=== PATIENT | female | born 2000 | race Caucasian/White ===

== ENCOUNTER 2024-09-10 23:45 | Emergency (ER) | payer BC, SELFPAY ==
[2024-09-10 23:55] VITALS: BP 133/86; PULSE 115; RESP 20; TEMP 36.8; O2SAT 99; BMI 25.2
[2024-09-11 00:33] LABS: Appearance Urine Clear (Clear); Bilirubin Urine Negative (Negative); Blood Urine Trace-lysed (Negative); Color Urine Yellow (Yellow); Glucose Urine Negative (Negative); Ketones Urine 2+ (Negative); Leukocyte Esterase Urine Negative (Negative); Nitrite Urine Negative (Negative); Protein Urine Trace (Negative); Specific Gravity Urine 1.015 (1.000-1.030); Urobilinogen Urine 0.2 (0.2-1.0); WBC Urine 0-2 (0-5)
--- NOTE | 2024-09-11 00:33 | CRLHL7_ITS ---
For Patients: As a result of the Century Cures Act, medical imaging exams and procedure reports are released immediately into your electronic medical record. You may view this report before your referring provider. If you have questions, please contact your health care provider. INDICATION: Right lower quadrant pain. TECHNIQUE: CT abdomen and pelvis without contrast. COMPARISON: 12/23/2023. FINDINGS: Lower chest: Unremarkable. Liver: Normal in size and attenuation. No suspicious masses. Gallbladder and bile ducts: No stones or inflammation. No biliary dilatation. Pancreas: Unremarkable. No mass or inflammation. Spleen: Normal in size. No masses. Adrenal glands: Normal in size. No nodules. Kidneys: Normal in size. No suspicious masses, stones, or hydronephrosis. GI tract: Normal in caliber. No sign of mass or inflammation. A structure favored to represent the appendix appears to arise from the cecum and run alongside the bladder and uterus (, ) without definite associated inflammatory changes. Vasculature: Abdominal aorta is normal in caliber. Lymph nodes: No lymphadenopathy. Peritoneum/Abdominal Wall: Unremarkable. No sign of mass or infiltration. No free air or significant free fluid. Pelvis: Bladder is unremarkable. Intrauterine IUD. Bones: Unremarkable for age. IMPRESSION: No acute findings. Specifically, no definite evidence of acute appendicitis. Please note that all CT scans at this facility use dose modulation, iterative reconstruction, and/or weight-based dosing when appropriate to reduce radiation dose to as low as reasonably achievable. Dictated by Misael Whiteside MD @ 09/11/2024 1:32:56 AM (Electronically Signed)
[2024-09-11 01:06] LABS: Ur HCG Qualitative* Negative (Negative)
[2024-09-11 01:08] LABS: Basophils Absolute Auto 0.03 K/uL (0.00-0.30); Basophils Percent Auto 0.4 % (0.0-3.0); Eosinophils Absolute Auto 0.09 K/uL (0.00-0.50); Eosinophils Percent Auto 1.3 % (0.0-7.0); Hematocrit 39.6 % (33.0-51.0); Hemoglobin* 13.5 gm/dL (12.0-16.0); Immature Granulocytes Abs Auto 0.02 K/uL (0.00-0.30); Immature Granulocytes Pct Auto 0.3 %; Lymphocytes Absolute Auto 1.86 K/uL (0.90-2.90); Lymphocytes Percent Auto 26.2 % (20-44); Mean Corpuscular HGB Conc 34 gm/dL (32-36); Mean Corpuscular Hemoglobin 30 pg (26-34); Mean Corpuscular Volume 89 fL (80-100); Monocytes Percent Auto 10.1 % (0.0-11.0); Neutrophils Absolute Auto 4.39 K/uL (1.7-7.0); Neutrophils Percent Auto 61.7 % (42.0-72.0); Platelet Count* 292 K/uL (140-440); RDW Coefficient of Variation % 12.2 % (11.5-15.5); Red Blood Count 4.47 m/uL (4.00-5.20); White Blood Count* 7.11 K/uL (4.50-11.00)
[2024-09-11 01:14] LABS: Slide Review Reflex No
[2024-09-11 01:22] LABS: Chloride* 104 mmol/L (96-114); Sodium* 139 mmol/L (135-149)
[2024-09-11 01:23] LABS: Potassium* 3.3 mmol/L (3.6-5.1)
[2024-09-11 01:25] LABS: Blood Urea Nitrogen* 13 mg/dL (5-24); Creatinine* 0.8 mg/dL (0.5-1.5); Est. Creatinine Clearance* 102.39; Estimated Glomerular Filt Rate 106 ml/min
[2024-09-11 01:26] LABS: Anion Gap 10 mEq/L (7-15); Calcium* 9.6 mg/dL (8.4-10.6); Carbon Dioxide* 25 mmol/L (20-32); Glucose* 102 mg/dL (60-115)
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
--- OUTSIDE RECORDS SUMMARY | 2024-09-11 01:39 | XMS_ITS | Clinical Summary ---
Author Organization [facility] Address [address] , [address] [place] [address] Phone Care Team Providers Care Legal Consultant Name Role Phone Gisela Soria Conditions or Problems Problem Name Problem Code Onset Date Status Entry Date Provider Comment Standard Description Annotate Muscle weakness [id number] (SNOMED CT) Resolved Orville Dinh MD Muscle weakness Chronic daily headache [id number] (SNOMED CT) 07/22 Resolved 07/22 Orville Dinh MD Daily headache Unsteady gait 71880641 (SNOMED CT) 08/15 Active 08/15 Mana Bojorquez MD Unsteady when walking Vitamin D deficiency 33599778 (SNOMED CT) 04/21 Active 04/21 Mana Bojorquez MD Vitamin D deficiency Chronic daily headache 054868631808 (SNOMED CT) 07/22 Removed 07/22 Mana Bojorquez MD Daily headache Tension headache 050875789 (SNOMED CT) 06/19 Active 06/19 Mana Bojorquez MD Tension-type headache Muscle weakness 67353106 (SNOMED CT) Removed Mana Bojorquez MD Muscle weakness Paresthesia 05574276 (SNOMED CT) 08/06 Active 08/06 Mana Bojorquez MD Paresthesia Hemiplegic migraine, 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 Her not to take more than 9 days/month 06/10 naproxen sodium [id number] Elizabeth Melgar PA-C UBRELVY 100 MG TABS 1 tab (100 mg) at onset of headache; may repeat after 2 hr up to 200 mg every other day as needed. 11/07 ubrogepant [id number] Elizabeth Melgar PA-C NAPROSYN 500 MG TABS Take 1 tablet by mouth every twelve hours as needed for pain Do not take more than 9 days/month naproxen [id number] Elizabeth Melgar PA-C NAPROXEN SODIUM 550 MG TABS TAKE 1 TABLET BY MOUTH EVERY 12 HOURS NEEDED FOR MIGRAINES. 07/02 naproxen sodium 89454574144 Orville Dinh MD NAPROXEN SODIUM 550 MG TABS TAKE 1 TABLET BY MOUTH EVERY 12 HOURS NEEDED FOR MIGRAINES. Her not to take more than 9 days/month 06/10 naproxen sodium 09505381883 Orville Dinh MD Vitamin C, B12, D, apple cider vinegar and cinnamon Vitamin C, B12, D, apple cider vinegar and cinnamon Orville Dinh MD UBRELVY 100 MG TABS 1 tab (100 mg) at onset of headache; may repeat after 2 hr up to 200 mg every other day as needed. 11/07 ubrogepant [id number] Orville Dinh MD NAPROXEN SODIUM 550 MG TABS TAKE 1 TABLET BY MOUTH EVERY 12 HOURS NEEDED FOR MIGRAINES. 07/02 naproxen sodium 93862821038 Mana Bojorquez MD LAMOTRIGINE 25 MG TABS 1 tab by mouth twice per day (along with 100mg tab for total of 125mg twice per day) 0 8/10 lamotrigine 45544758606 Layla Dominguez RN LAMOTRIGINE 100 MG TABS 1 tab by mouth twice per day (along with 25mg tab for total of 125mg twice per day) 0 8/10 lamotrigine 28481590875 Layla Dominguez RN LAMOTRIGINE 100 MG TABS TAKE 1 TABLET BY MOUTH TWICE PER DAY (ALONG WITH 25MG TAB FOR TOTAL OF 125MG TWICE PER DAY) lamotrigine 80179508946 Elizabeth Melgar PA-C LAMOTRIGINE 25 MG TABS TAKE 1 TABLET BY MOUTH TWICE PER DAY (ALONG WITH 100MG TAB FOR TOTAL OF 125MG TWICE PER DAY) lamotrigine 51559918465 Elizabeth Melgar PA-C LAMOTRIGINE 25 MG TABS 1 tab by mouth twice per day (along with 100mg tab for total of 125mg twice per day) 0 8/10 lamotrigine 04064940412 Mana Bojorquez MD LAMOTRIGINE 100 MG TABS 1 tab by mouth twice per day (along with 25mg tab for total of 125mg twice per day) 0 8/10 lamotrigine 68995109535 Mana Bojorquez MD NAPROXEN SODIUM 550 MG TABS TAKE 1 TABLET BY MOUTH EVERY 12 HOURS NEEDED FOR MIGRAINES. 0 8/30 naproxen sodium 77377293954 Mana Bojorquez MD NAPROXEN SODIUM 550 MG TABS TAKE 1 TABLET BY MOUTH EVERY 12 HOURS NEEDED FOR MIGRAINES. 0 5/03 naproxen sodium 45972278223 Mana Bojorquez MD LAMOTRIGINE 25 MG TABS TAKE 1 TABLET BY MOUTH TWO TIMES A DAY 0 05/29 lamotrigine 78323871554 Marilyn Smalls RN LAMOTRIGINE 100 MG TABS TAKE 1 TABLET BY MOUTH TWICE A DAY 0 05/29 lamotrigine 07753367323 Marilyn Smalls RN LAMOTRIGINE 25 MG TABS 1 tab by mouth twice per day (along with 100mg tab for total of 125mg twice per day) 0 08/15 lamotrigine 22617522940 Mana Bojorquez MD LAMOTRIGINE 100 MG TABS 1 tab by mouth twice per day (along with 25mg tab for total of 125mg twice per day) 08/15 lamotrigine 28491752527 Mana Bojorquez MD NAPROXEN SODIUM 550 MG TABS TAKE 1 TABLET BY MOUTH EVERY 12 HOURS NEEDED FOR MIGRAINES. 05/29 naproxen sodium 81834689146 Mana Bojorquez MD LAMOTRIGINE 25 MG TABS TAKE 1 TABLET BY MOUTH TWO TIMES A DAY 05/29 lamotrigine 26323972263 Mana Bojorquez MD LAMOTRIGINE 100 MG TABS TAKE 1 TABLET BY MOUTH TWICE A DAY 05/29 lamotrigine 44265335381 Mana Bojorquez MD LAMOTRIGINE 100 MG TABS Take 1 tablet by mouth twice a day 0 10/31 lamotrigine 78117658690 Marilyn Smalls RN LAMOTRIGINE 25 MG TABS Take 1 tablet by mouth twice a day 0 10/31 lamotrigine 94612866265 Marilyn Smalls RN LAMOTRIGINE 25 MG TABS TAKE 1 TABLET BY MOUTH TWO TIMES A DAY 11/01 lamotrigine 37255910181 Mana Bojorquez MD LAMOTRIGINE 100 MG TABS TAKE 1 TABLET BY MOUTH TWICE A DAY 11/01 lamotrigine 12765243498 Mana Bojorquez MD NAPROXEN SODIUM 550 MG TABS TAKE 1 TABLET BY MOUTH EVERY 12 HOURS NEEDED FOR MIGRAINES. NEEDS APPT SCHEDULED, CALL [phone] 04/18 naproxen sodium 28078500954 Layla Dominguez RN LAMOTRIGINE 25 MG TABS Take 1 tablet by mouth twice a day 10/31 lamotrigine 38378076304 Mana Bojorquez MD CYCLOBENZAPRINE HCL 10 MG TABS 1 tablet by mouth as needed cyclobenzaprine 45787512839 Mana Bojorquez MD LAMOTRIGINE 100 MG TABS Take 1 tablet by mouth twice a day 10/31 lamotrigine 65588090975 Mana Bojorquez MD NAPROXEN SODIUM 550 MG TABS TAKE 1 TABLET BY MOUTH EVERY 12 HOURS NEEDED FOR MIGRAINES. 04/30 naproxen sodium 39097724543 Mana Bojorquez MD LAMOTRIGINE 100 MG TABS TAKE ONE TABLET BY MOUTH TWO TIMES PER DAY (TAKE WITH 25MG TAB FOR TOTAL OF 125MG TWO TIMES A DAY) 07/28 lamotrigine 18368996603 Mana Bojorquez MD LAMOTRIGINE 25 MG TABS TAKE ONE TABLET BY MOUTH TWO TIMES PER DAY (TAKE WITH 100MG TAB FOR TOTAL OF 125MG TWO TIMES A DAY) 04/18 lamotrigine 51303515418 Mana Bojorquez MD NAPROXEN SODIUM 550 MG TABS TAKE 1 TABLET BY MOUTH EVERY 12 HOURS NEEDED FOR MIGRAINES. NEEDS APPT SCHEDULED, CALL [phone] 04/18 naproxen sodium 87030866273 Mana Bojorquez MD NAPROXEN SODIUM 550 MG TABS TAKE 1 TABLET BY MOUTH EVERY 12 HOURS NEEDED FOR MIGRAINES. NEEDS APPT SCHEDULED, CALL [phone] 05/06 naproxen sodium 28176080436 Marilyn Smalls RN NAPROXEN SODIUM 550 MG TABS TAKE 1 TABLET BY MOUTH EVERY 12 HOURS NEEDED FOR MIGRAINES naproxen sodium 17417503442 Layla Dominguez RN NAPROXEN SODIUM 550 MG TABS TAKE 1 TABLET BY MOUTH EVERY 12 HOURS NEEDED FOR MIGRAINES. NEEDS APPT SCHEDULED, CALL [phone] 04/23 naproxen sodium 70159932257 Mana Bojorquez MD NAPROXEN SODIUM 550 MG TABS 1 tablet PRN Q12 hours for migraines 12/06 NAPROXEN SODIUM Mana Bojorquez MD NAPROXEN SODIUM 550 MG TABS TAKE 1 TABLET BY MOUTH EVERY 12 HOURS NEEDED FOR MIGRAINES naproxen sodium 59809419859 Mana Bojorquez MD CYCLOBENZAPRINE HCL 10 MG TABS 1 tablet PRN for severe migraine 04/18 CYCLOBENZAPRINE HCL 18394103367 Mana Bojorquez MD NAPROXEN SODIUM 550 MG TABS 1 tablet PRN Q12 hours for migraines 12/06 NAPROXEN SODIUM 60604603298 Mana Bojorquez MD LAMOTRIGINE 100 MG TABS TAKE ONE TABLET BY MOUTH TWO TIMES PER DAY (TAKE WITH 25MG TAB FOR TOTAL OF 125MG TWO TIMES A DAY) 07/28 LAMOTRIGINE 95504033600 Mana Bojorquez MD LAMOTRIGINE 25 MG TABS TAKE ONE TABLET BY MOUTH TWO TIMES PER DAY (TAKE WITH 100MG TAB FOR TOTAL OF 125MG TWO TIMES A DAY) 05/06 LAMOTRIGINE 42373393191 Mana Bojorquez MD LAMOTRIGINE 100 MG TABS TAKE ONE TABLET BY MOUTH TWO TIMES PER DAY (TAKE WITH 25MG TAB FOR TOTAL OF 125MG TWO TIMES A DAY) 07/28 LAMOTRIGINE 87823319695 Mana Bojorquez MD GABAPENTIN 100 MG CAPS 2 pills QHS 04/21 GABAPENTIN 52850555633 Mana Bojorquez MD GABAPENTIN 100 MG CAPS 2 pills QHS 07/28 GABAPENTIN 17642676489 Mana Bojorquez MD AMITRIPTYLINE HCL 10 MG TABS 1 tablet QHS 07/22 AMITRIPTYLINE HCL 43175598074 Mana Bojorquez MD LAMOTRIGINE 25 MG TABS TAKE ONE TABLET BY MOUTH TWO TIMES PER DAY (TAKE WITH 100MG TAB FOR TOTAL OF 125MG BID). 08/11 LAMOTRIGINE 54873067812 Mana Bojorquez MD LAMOTRIGINE 100 MG TABS TAKE ONE TABLET BY MOUTH TWO TIMES PER DAY (TAKE WITH 25MG TAB FOR TOTAL OF 125MG BID). 07/28 LAMOTRIGINE 13448788196 Mana Bojorquez MD AMITRIPTYLINE HCL 10 MG TABS 1 tablet QHS 07/24 AMITRIPTYLINE HCL 80343331507 Mana Bojorquez MD LAMOTRIGINE 25 MG TABS TAKE ONE TABLET BY MOUTH TWO TIMES A DAY. (TAKE WITH 100MG TABLET FOR DOSE OF 125MG TWICE A DAY) 06/09 LAMOTRIGINE 98940285933 Mana Bojorquez MD LAMOTRIGINE 100 MG TABS TAKE ONE TABLET BY MOUTH TWO TIMES A DAY 07/28 LAMOTRIGINE 95567883045 Mana Bojorquez MD LAMICTAL 25 MG TABS 1 tablet BID (total 125mg BID) LAMOTRIGINE 99971406491 Mana Bojorquez MD LAMOTRIGINE 100 MG TABS 1 bid 07/28 LAMOTRIGINE 63941828146 Mana Bojorquez MD LAMOTRIGINE 100 MG TABS 1 bid 07/28 LAMOTRIGINE 74816087865 Mana Bojorquez MD LAMOTRIGINE 25 MG TABS 25mg QDay x2 weeks, 25mg BID x2 weeks, 50mg BID x2 weeks, 75mg BID x1 week, 100mg BID final 11/14 LAMOTRIGINE 67881240220 Mana Bojorquez MD ACETAZOLAMIDE 125 MG TABS Take 1 tablet twice a day for 1 week, then increase to 2 tablets twice a day 08/06 ACETAZOLAMIDE 31390184649 Mana Bojorquez MD VERAPAMIL HCL ER 120 MG [id number] 1 daily 06/26 VERAPAMIL HCL 63650377834 Mana Bojorquez MD ACETAZOLAMIDE 125 MG TABS Take 1 tablet twice a day for 1 week, then increase to 2 tablets twice a day 08/08 ACETAZOLAMIDE 42851528871 Mana Bojorquez MD VERAPAMIL HCL ER 120 MG [id number] 1 daily 06/27 VERAPAMIL HCL 85733338440 Mynor Iraheta MD Medications Administered No information available. Allergies, Adverse Reactions, Alerts Allergy Name Reaction Description Start Date Severity Statu s Provider AUGMENTIN yeast infection Moderate Active Ros hni Mile Melgar PA-C Results Date Name Value Unit Range Flag Description Internal Other: Authorizatio n - OBS PTSTAUTHDT 1 N PT Startin g Authorization Date Rx Refill: eRx Request for L AMOTRIGINE 100 MG ORAL TABS ESM_RR [id number]` LAMOTRIGINE 100 MG ORAL TABS```60 Tablet``1 bid``1`0``No date sent`[facility]*`08026 11120`04449 [id number]`3757 9`LAMOTRIGI NE 100 MG TAB 100 TAB Quantity: 60 Tablet Instruction s: TAKE ONE TABLET BY MOUTH TWO TIMES A DAY B e-scripts tyler yeyo refill request Office Visit: mail SMOK STATUS never smoker Tobacco smoking status Lab Report: VITAMIN D,25-OH, TOTAL,IA VITD 25OH TO 26 30-100 L VITAMIN D, 25 OH, TOTAL Internal Other: Verbal Autho rization/Emergency Contact - OBS VERBAL_EMER DONE Verbal au thorization and emergency contact Internal Other: Authorizatio n - OBS [id number] Yes GE use only - for [employer] import when terms are not otherwise specified [email or web address] Yes Authoriza tion: Release of Information - Authorize [facility] - Payment and Healthcare Operations ROIAUTHOTHER Yes Authoriz ation: Release of Information - Authorize Others/Insurance - Payment and Healthcare Operations HIECONSENT Yes Consent To Release information to the Health Information Exchange (HIE) [email or web address] Yes Authorizat ion: Authorization for [facility] to leave messages, voicemail, send text messages, send emails AUTHRELHCARE Yes Authoriz ation: Release/Retrieval of Information to/from Healthcare Facilities, Pharmacy Benefit Payers and Providers AUTHPRIVPRAC Yes Authoriz ation: Notice of privacy practices AUTHBENEFIT Yes Authoriza tion: Assignment of Benefits and Payment Agreement Replaced Document: (P) AST, ALT, CBC (INCLUDES DIFF/PLT), LAMOTRIGINE LAMOTRIGINE * ug/mL lamoTRIgi ne [Mass/volume] in Serum or Plasma BASOPHIL % 1.0 % N Basophils/ 100 leukocytes in Blood by Manual count EOSINOPHIL % 3.1 % N Eosinoph ils/100 leukocytes in Blood by Manual count MONOCYTE % 11.1 % N Monocytes/ 100 leukocytes in Blood by Automated count LYMPHS % 42.0 % N Lymphocytes/ 100 leukocytes in Blood by Automated count PMN % 42.8 % N Neutrophils/1 00 leukocytes in Blood by Automated count BASOPH COUNT 52 CELLS/UL 10*3/mm3 0-200 N Bas ophils [#/volume] in Blood by Manual count EOS COUNT 161 CELLS/UL 10*3/mm3 15-500 N eosinophil count , blood MONOSCT AUTO 577 CELLS/UL 10*3/uL 200-950 N Monocytes [#/vol ume] in Blood by Automated count LYMPH COUNT 2184 CELLS/UL 10*3/mm3 850-3900 N lymphocyte count , blood NEUTRO COUNT 2226 CELLS/UL 10*3/mm3 0229-6844 N neutrophil count , blood MPV 9.9 fL 7.5-12.5 N Platelet gilda n volume [Entitic volume] in Blood by Quan-Nicola PLATELETS 376 THOUSAND/UL 10*3/mm3 140-400 N Platelets [#/vol ume] in Blood by Automated count RDW 11.8 % 11.0-15.0 N Erythrocyte distribution width [Ratio] by Automated count MCHC 32.9 G/DL 32.0-36.0 N MCHC [Mass/ volume] by Automated count MCH 29.7 pg 27.0-33.0 N MCH [Entiti c mass] by Automated count MCV 90.4 fL 80.0-100. 0 N MCV [Entitic volume] by Automated count HCT 43.2 % 35.0-45.0 N Hematocrit [Volume Fraction] of Blood by Automated count HGB 14.2 g/dL 11.7-15.5 N Hemoglobin [Mass/volume] in Blood RBC 4.78 MILLION/UL 10*6/mm3 3.80-5.10 N Erythrocytes [#/volume] in Blood by Automated count WBC 5.2 THOUSAND/UL 10*3/mm3 3.8-10.8 N Leukocytes [#/volume] in Blood by Automated count SGPT (ALT) * U/L Alanine aminotransferase [Enzymatic activity/volume] in Serum or Plasma SGOT (AST) * U/L Aspartate aminotransferase [Enzymatic activity/volume] in Serum or Plasma Office Visit: Office Visit f ax MEDS REVIEW Done Documenta tion of current medications (procedure) Plan of Care Type Date Detail Appointment 11:20 AM Orville Dinh MD, [address] [place] [address], [address] [place], [phone], Pending order Follow up Pending order Follow up Pending order Follow up LILY Pending order Patient Instruct ions Pending order Follow up LILY Pending order Patient Instruct ions Pending order Follow up Pending order Patient Instruct ions Pending order Follow up Pending Order exclud ed from report: Pending order ALT (SGPT) Pending order AST (SGOT) Pending order CBC with Diff/Pl atelet Pending order Lamotrigine (Clark ictal) Pending order Patient Instruct ions Pending order Follow up with N eurologist or LILY Pending order Patient Instruct ions Pending order Patient Instruct ions Pending Order exclud ed from report: Pending order Follow up with N eurologist or LILY Pending Order exclud ed from report: Pending order Patient Instruct ions Pending Order exclud ed from report: Pending order Follow up Pending order MRI-Brain W/O Pending order Follow up in cli mickey or telemedicine Pending order Physical Therapy Pending order Follow up Pending order Follow up Pending order Follow up Pending order Follow up Pending order Follow up Pending order Follow up Pending order Follow up Pending order Vitamin D 25 Hyd danny Pending order Patient Instruct ions Pending order Follow up Pending order Other Test Pending order Patient Instruct ions Pending order Other Referral Pending order Patient Instruct ions Pending order Follow up Pending Order exclud ed from report: Pending order Follow up Pending order EKG Pending order Other Referral Pending order Patient Instruct ions Pending order Other Test Pending order Follow up Pending order Other Referral Pending order Patient Instruct ions Pending order Follow up Pending order Other Referral Pending order Other Referral Pending order Patient Instruct ions Pending order Follow up Pending order Obtain outside r ecords Pending order Other Referral Pending order Patient Instruct ions Pending order MRI-Brain W/O Pending order MRA-Head W/O Pending order Other Referral Pending order Patient Instruct ions Pending order Follow up Pending order Transition of Ca re Referral Pending order Follow up Pending order EEG Sleep Depriv ed Pending order Other Referral Pending order Patient Instruct ions Procedures Code Procedure Name Date Entry Date ORDERS Follow up ORDERS Patient Instructions ORDERS Patient Instructions ORDERS Lamotrigine (Lamictal) 05/03 ORDERS CBC with Diff/Platelet 05/03 ORDERS AST (SGOT) ORDERS ALT (SGPT) [facility]-[id number] Documentation of current medicatio ns ORDERS Patient Instructions ORDERS Follow up with Neurologist or LILY ORDERS Patient Instructions ORDERS Follow up [id number] MRI-Brain W/O ORDERS Follow up in clinic or telemedicine 08/15 [facility]-[id number] Documentation of current medicatio ns ORDERS Physical Therapy [id number] Documentation of current medicatio ns ORDERS Follow up [id number] Documentation of current medicatio ns ORDERS Follow up ORDERS Follow up SCT-[id number] Documentation of current medicatio ns ORDERS Follow up SCT-[id number] Documentation of current medicatio ns SCT-[id number] Documentation of current medicatio ns ORDERS Follow up ORDERS Follow up ORDERS Patient Instructions [id number] Documentation of current medicatio ns ORDERS Vitamin D 25 Hydroxy ORDERS Follow up ORDERS Other Test SCT-[id number] Documentation of current medicatio ns ORDERS Patient Instructions ORDERS Follow up [id number] Other Referral SCT-[id number] Documentation of current medicatio ns ORDERS Patient Instructions ORDERS Follow up ORDERS EKG ORDERS Other Test ORDERS Patient Instructions [id number] Documentation of current medicatio ns SCT-[id number] Other Referral ORDERS Follow up ORDERS Patient Instructions SCT-[id number] Documentation of current medicatio ns SCT-[id number] Other Referral ORDERS Follow up SCT-[id number] Documentation of current medicatio ns ORDERS Patient Instructions SCT-[id number] Other Referral SCT-[id number] Other Referral ORDERS Follow up SCT-[id number] Other Referral ORDERS Obtain outside records 01/23 ORDERS Patient Instructions SCT-[id number] Documentation of current medicatio ns SCT-[id number] Other Referral [id number] MRA-Head W/O [id number] MRI-Brain W/O SCT-[id number] Documentation of current medicatio ns ORDERS Transition of Care Referral ORDERS EEG Sleep Deprived 4 ORDERS Follow up CPT-90513 EEG EXTENDED (<= 1 HOUR) (END) ORDERS Follow up ORDERS Patient Instructions [facility]-[id number] Other Referral ORDERS Patient Instructions [facility]-[id number] Documentation of current medicatio ns CPT-66859 MRI Brain W/O CPT-54071 Free Service - MRA 7 Vital Signs Date Name Value Unit Description Height 65 [in_us] height E&M Heart Rate 68 /min pulse rate BMI (Body Mass Index) 25.39 kg/m2 Bod y Mass Index (Ratio) BP Diastolic 64 mm[Hg] blood pressu re, diastolic BP Systolic 98 mm[Hg] blood pressur e, systolic Weight Measured 69.09 kg weight in kilograms E&M Weight Measured 152 [lb_av] weight E& M Weight Measured 152 [lb_av] weight E& M Immunizations No information available. Advance Directives No information available.
[2024-09-11] MEDS: OxyCODONE/APAP 5-325 TABLET 1 TAB PO (02:00)
--- NOTE | 2024-09-11 02:06 | ED.GENADULT ---
HPI - General Adult General Date Seen: 09/11/24 Chief complaint: Urogenital Problems, Female Stated complaint: abdominal pain Time Seen by Provider: 09/11/24 00:03 Source: patient Mode of arrival: ambulatory Limitations: no limitations History of Present Illness HPI narrative: Patient is a 24-year-old female who was in her usual state of health until this evening when she had sudden onset of suprapubic pain wall riding in her car to [place]. She felt fine throughout the day today. She ate and drank normally. She has had no fevers or chills. She denies any dysuria, urgency, frequency. She denies any constipation. No unusual activities today. She has an IUD in place and does not get a regular period. She has chronic vaginal discharge but no change in that. No itching or discoloration. No odor. She has not taken anything for this pain. It is better when she lies back and worse when she sits forward. No nausea or vomiting. She has never had this previously. She lives in [place] but her PCP is in [place]. Related Data Home Medications ?Medication ?Instructions ?Recorded ?Confirmed cyclobenzaprine 10 mg tablet 10 mg PO Q12H PRN 09/10/24 09/10/24 lamotrigine 100 mg tablet 150 mg PO BID 09/10/24 09/10/24 (Lamictal) Allergies Allergy/AdvReac Type Severity Reaction Status Date / Time amoxicillin Allergy Mild Yeast Verified 09/10/24 23:53 Infection Review of Systems Narrative: Review of systems is outlined above otherwise noted to be negative. [facility] Medical History (Updated 09/11/24 @ 01:46 by Misael Beasley MD) Presence of [place]ena IUD ?Z97.5 - Presence of (intrauterine) contraceptive device (ICD-10) Vitamin D deficiency ?E55.9 - Vitamin D deficiency, unspecified (ICD-10) Endometriosis ?N80.9 - Endometriosis, unspecified (ICD-10) Pyelonephritis ?N12 - Tubulo-interstitial nephritis, not specified as acute or chronic (ICD-10) PTSD (post-traumatic stress disorder) ?F43.10 - Post-traumatic stress disorder, unspecified (ICD-10) Complicated migraine ?G43.109 - Migraine with aura, not intractable, without status migrainosus (ICD-10) Colles' fracture ?S52.539A - Colles' fracture of unspecified radius, initial encounter for closed fracture (ICD-10) Anxiety ?F41.9 - Anxiety disorder, unspecified (ICD-10) Surgical History (Updated 09/11/24 @ 00:28 by Elgin Anderson RN) History of removal of ovarian cyst ?Z98.890 - Other specified postprocedural states (ICD-10) ?Z87.42 - Personal history of other diseases of the female genital tract (ICD-10) History of tonsillectomy ?Z90.89 - Acquired absence of other organs (ICD-10) Social History Smoking Status: Never smoker Second hand tobacco smoke exposure: No How often do you have a drink containing alcohol: never AUDIT-C Alcohol total score: 0 Non-prescribed substance use: marijuana (any form) Exam Narrative: Exam Narrative: Vitals noted. HEENT: Conjunctiva clear.Neck is supple without adenopathy, thyromegaly, carotid bruit. Lungs: Clear to auscultation in all rainey. No wheezes, rales, rhonchi. Heart: Regular rate and rhythm without murmur. Abdomen: Soft with right lower quadrant and suprapubic pain on palpation. No rebound tenderness. Bowel sounds are normal. Psoas sign is negative. No palpable mass. Extremities: No cyanosis or edema. Good distal pulses. Skin: No abnormalities noted of the exposed skin. Neurologic: Awake, alert, fully oriented. Neurologic exam is nonfocal. Const: Vital Signs, click to edit/add: Vital Signs - 24 hr 09/10/24 23:55 Temperature 98.3 F Pulse Rate [Right Pulse Oximeter] 115 H Respiratory Rate 20 Blood Pressure [Ri ght Upper Arm] 133/86 Pulse Oximetry 99 Oxygen Delivery Me thod Room Air Course Course ED Course: Patient seen and examined. Labs and CT are ordered. She declines pain medication. Reevaluation(s) Reevaluation #1: CBC is normal. Basic metabolic panel is normal other than a potassium of 3.3. Urinalysis shows 2+ ketones, 2-5 red cells, no white cells or bacteria. CT scan of the abdomen and pelvis is completely unremarkable. This point patient would like a pain medication and is given oxycodone 5 mg orally with some relief. Reevaluation #2: I explained to her that I do not have a good explanation for her pain but we have ruled out many things. This may be merely indigestion, gas, muscle strain, or other benign cause. She does not have a surgical abdomen and her diagnostics are all unremarkable. She is discharged home with a plan to follow-up if her symptoms do not improve over the next couple of days. She is comfortable with this plan. Vital Signs Vital signs: Initial Vital Signs Temperature 98.3 F 09/10/24 23:55 Temperature Source Temporal Artery Scan 09/10/24 23:55 Pulse Rate 115 H 09/10/24 23:55 Respiratory Rate 09/10/24 23:55 Blood Pressure 133/86 09/10/24 23:55 Blood Pressure Mean 101 09/10/24 23:55 Blood Pressure Position Sitting 09/10/24 23:55 Pulse Oximetry 99 09/10/24 23:55 Oxygen Delivery Method Room Air 09/10/24 23:55 Vital Signs Temperature 98.3 F 09/10/24 23:55 Pulse Rate 115 H 09/10/24 23:55 Respiratory Rate 09/10/24 23:55 Blood Pressure 133/86 09/10/24 23:55 Pulse Oximetry 99 09/10/24 23:55 Oxygen Delivery Method Room Air 09/10/24 23:55 Temperature 98.3 F 09/10/24 23:55 Pulse Rate 115 H 09/10/24 23:55 Respiratory Rate 09/10/24 23:55 Blood Pressure 133/86 09/10/24 23:55 Pulse Oximetry 99 09/10/24 23:55 Oxygen Delivery Method Room Air 09/10/24 23:55 Medications Administered Medications: Discontinued Medications Generic Name Dose Route Start Last Admin Trade Name Freq PRN Reason Stop Dose Admin Oxycodone/Acetaminophen 1 tab 09/11/24 01:43 09/11/24 02:00 Oxycodone/Apap 5-325 Tablet PO 09/11/24 01:44 1 tab ONCE ONE Administration Medical Decision Making Lab Data Labs: Lab Results 09/11/24 09/11/24 Range/Units 00:17 00:59 WBC 7.11 (4.50-11.00) K/uL RBC 4.47 (4.00-5.20) m/uL Hgb 13.5 (12.0-16.0) gm/dL Hct 39.6 (33.0-51.0) % MCV 89 (80-100) fL MCH 30 (26-34) pg MCHC 34 (32-36) gm/dL RDW Coeff of Hong 12.2 (11.5-15.5) % Plt Count 292 (140-440) K/uL Neut % (Auto) 61.7 (42.0-72.0) % Lymph % (Auto) 26.2 (20-44) % [facility] % (Auto) 10.1 (0.0-11.0) % Eos % (Auto) 1.3 (0.0-7.0) % Baso % (Auto) 0.4 (0.0-3.0) % Neut # (Auto) 4.39 (1.7-7.0) K/uL Lymph # (Auto) 1.86 (0.90-2.90) K/uL [facility] # (Auto) 0.70 (0.00-0.90) K/UL Eos # (Auto) 0.09 (0.00-0.50) K/uL Baso # (Auto) 0.03 (0.00-0.30) K/uL Abs Immat Gran (auto) 0.02 (0.00-0.30) K/uL Imm/Tot Granulo (auto) 0.3 % Sodium 139 (135-149) mmol/L Potassium 3.3 L (3.6-5.1) mmol/L Chloride 104 (96-114) mmol/L Carbon Dioxide 25 (20-32) mmol/L Anion Gap 10 (7-15) mEq/L BUN 13 (5-24) mg/dL Creatinine 0.8 (0.5-1.5) mg/dL Estimated Creat Clear 102.39 Estimated GFR 106 ml/min Glucose 102 (60-115) mg/dL Calcium 9.6 (8.4-10.6) mg/dL Urine Color Yellow (Yellow) Urine Appearance Clear (Clear) Urine pH 7.0 (5.0-8.5) Ur Specific [place] 1.015 (1.000-1.030) Urine Protein Trace A (Negative) Urine Glucose (UA) Negative (Negative) Urine Ketones 2+ A (Negative) Urine Blood Trace-lysed A (Negative) Urine Nitrite Negative (Negative) Urine Bilirubin Negative (Negative) Urine Urobilinogen 0.2 (0.2-1.0) Ur Leukocyte Esterase Negative (Negative) Urine RBC 2-5 A (0-2) Urine WBC 0-2 (0-5) Ur Squamous Epith Cells None (None-Few) Urine Bacteria None (None) Urine HCG, Qual Negative (Negative) Discharge Plan Discharge Clinical Impression: Abdominal pain Patient Disposition: Home, Self-Care Condition: Stable Additional Instructions: Tylenol 1000 mg 3 times daily as needed, ibuprofen 600 mg 3 times daily as needed, oxycodone one tablet every 4 hours as needed for severe pain. Rest, stay hydrated, follow-up bland diet. Follow-up if pain has not improved over the next few days. Activity Level: No Restrictions Discharge Diet: Regular Prescriptions: No Action lamotrigine [Lamictal] 100 mg tablet 150 mg PO BID cyclobenzaprine 10 mg tablet 10 mg PO Q12H PRN Follow Up/Referrals: Provider,Not a Local [Primary Care Provider, Family Practice] Stand Alone Forms: [place] Info Instructions
== END 2024-09-11 02:01 | disposition home or self-care (01) ==
PROVIDERS: Emergency Provider Family Medicine
DX: R10.9 Unspecified abdominal pain (principal)
CPT/HCPCS: 36415; 74176; 80048; 81001; 81025; 85025; 99282; 99284; A9270